=== PATIENT | female | born 1990 | race Asian ===

== ENCOUNTER 2020-04-30 15:29 | Inpatient (IN) | payer BC ==
[2020-04-30] MEDS ORDERED: Ondansetron 4 MG/2 ML SDV IVPUSH PRN (15:33)
[2020-04-30] MEDS ORDERED: Lidocaine 1% 50 ML MDV INJECT PRN (15:33)
[2020-04-30] MEDS ORDERED: Misoprostol 200 MCG Tab PO PRN (15:33)
[2020-04-30] MEDS ORDERED: Water For Irrigation,Sterile 1,000 ML Container IRR PRN (15:33)
[2020-04-30] MEDS ORDERED: Sodium Chloride 0.9% 2.5 ML Syringe FLUSH PRN (15:33)
[2020-04-30] MEDS ORDERED: Methylergonovine 0.2 MG/1 ML Amp IM PRN (15:33)
[2020-04-30] MEDS ORDERED: Nalbuphine 10 MG/1 ML Vial IVPUSH PRN (15:33)
[2020-04-30] MEDS ORDERED: Carboprost Tromethamine 250 MCG/1 ML Amp IM PRN (15:33)
[2020-04-30] MEDS ORDERED: Butorphanol 1 MG/ML SDV IVPUSH PRN (15:33)
[2020-04-30] MEDS ORDERED: Sodium Chloride 0.9% 10 ML Syringe FLUSH PRN (15:33)
[2020-04-30] MEDS ORDERED: Tranexamic Acid 1,000 MG in Sodium Chloride 0.9% 100 ML IV PRN (15:33)
[2020-04-30] MEDS ORDERED: Sodium Chloride 0.9% 10 ML SDV IV PRN (15:33)
[2020-04-30] MEDS: Lactated Ringers 1,000 ML IV SCH ×2 (15:35→18:12)
[2020-04-30] MEDS ORDERED: Terbutaline 1 MG/ML SDV SUBCUT PRN (15:38)
[2020-04-30] MEDS ORDERED: Oxytocin/0.9 % Sodium Chloride 30 UNIT/500 ML BAG IV SCH ×2 (15:45)
[2020-04-30] MEDS ORDERED: fentaNYL 100 MCG/2 ML SDV ONE (20:02)
[2020-04-30] MEDS ORDERED: Ropivacaine HCl/PF 100 ML ONE (20:02)
--- NOTE | 2020-04-30 20:29 | PCM.PREANE ---
Preanesthetic Assessment - Anesthesia/Transfusion/Family Hx Anesthesia History: Prior Anesthesia Without Reaction Family History of Anesthesia Reaction: No Transfusion History: No Prior Transfusion(s) - Physical Assessment NPO Status Date: 04/30/20 NPO Status Time: 14:00 ASA Class: 2 - Lab Values: Laboratory Last Values WBC 10.55 K/uL (4.0-11.0) 04/30/20 15:34 RBC 4.40 M/uL (4.30-5.90) 04/30/20 15:34 Hgb 12.1 g/dL (12.0-16.0) 04/30/20 15:34 Hct 36.2 % (36.0-46.0) 04/30/20 15:34 MCV 82.3 fL (80.0-98.0) 04/30/20 15:34 MCH 27.5 pg (27.0-32.0) 04/30/20 15:34 MCHC 33.4 g/dL (31.0-37.0) 04/30/20 15:34 RDW Std Deviation 44.3 fl (28.0-62.0) 04/30/20 15:34 RDW Coeff of Alexys 15 % (11.0-15.0) 04/30/20 15:34 Plt Count 442 K/uL (150-400) H 04/30/20 15:34 MPV 9.70 fL (7.40-12.00) 04/30/20 15:34 Nucleated RBC % 0.0 /100WBC 04/30/20 15:34 Nucleated RBCs # 0 K/uL 04/30/20 15:34 SARS-CoV-2 RNA (HARRIS) NEGATIVE (NEGATIVE) 04/30/20 15:46 Blood Type AB POSITIVE 04/30/20 15:34 Antibody Screen NEGATIVE 04/30/20 15:34 - Allergies Allergies/Adverse Reactions: Allergies Allergy/AdvReac Type Severity Reaction Status Date / Time No Known Allergies Allergy Verified 04/09/16 21:28 - Acknowledgements Anesthesia Type Planned: Epidural Pt an Appropriate Candidate for the Planned Anesthesia: Yes Alternatives and Risks of Anesthesia Discussed w Pt/Guardian: Yes Pt/Guardian Understands and Agrees with Anesthesia Plan: Yes PreAnesthesia Questionnaire - Past Health History Medical/Surgical History: Denies Medical/Surgical History Cardiovascular History: Reports: None Respiratory History: Reports: None Gastrointestinal History: Reports: None Genitourinary History: Reports: None [employer] History: Reports: 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 History: Reports: None Neurological History: Reports: None Psychiatric History: Reports: None Endocrine/Metabolic History: Reports: None Hematologic History: Reports: None Immunologic History: Reports: None Oncologic (Cancer) History: Reports: None Dermatologic History: Reports: None - Infectious Disease History Infectious Disease History: Reports: None - Past Surgical History Head Surgeries/Procedures: Reports: None - SUBSTANCE USE Tobacco Use Status *Q: Never Tobacco User Second Hand Smoke Exposure: No - HOME MEDS Home Medications: Home Meds . [No Known Home Meds] 04/09/16 [History] - CURRENT (IN HOUSE) MEDS Current Meds: Current Medications Butorphanol Tartrate (Stadol) 1 mg IVPUSH Q1H PRN PRN Reason: Pain Carboprost Tromethamine (Hemabate Ds) 250 mcg IM ASDIRECTED PRN PRN Reason: Post Hemorrhage Oxytocin/Sodium Chloride (Oxytocin 30 Unit/500 Ml-Ns) 30 unit in 500 mls @ 500 mls/hr IV TITRATE JAIR Tranexamic Acid 1,000 mg/ (Sodium Chloride) 110 mls @ 660 mls/hr IV ONETIME PRN PRN Reason: Bleeding Lactated Ringer's (Ringers, Lactated) 1,000 mls @ 150 mls/hr IV ASDIRECTED JAIR Last Admin: 04/30/20 18:12 Dose: 500 mls/hr Documented by: Oxytocin/Sodium Chloride (Oxytocin 30 Unit/500 Ml-Ns) 30 unit in 500 mls @ 2 mls/hr IV TITRATE JAIR; Protocol Last Titration: 04/30/20 19:49 Dose: 8 munits/min, 8 mls/hr Documented by: Lidocaine HCl (Xylocaine 1%) 50 ml INJECT ONETIME PRN PRN Reason: Laceration repair Methylergonovine Maleate (Methergine) 0.2 mg IM ASDIRECTED PRN PRN Reason: Post Hemorrhage Misoprostol (Cytotec) 200 mcg PO ONETIME PRN PRN Reason: Post Hemorrhage Nalbuphine HCl (Nubain) 10 mg IVPUSH Q1H PRN PRN Reason: Pain (severe 7-10) Ondansetron HCl (Zofran) 4 mg IVPUSH Q4H PRN PRN Reason: Nausea/Vomiting Sodium Chloride (Saline Flush) 10 ml FLUSH ASDIRECTED PRN PRN Reason: Keep Vein Open Sodium Chloride (Saline Flush) 2.5 ml FLUSH ASDIRECTED PRN PRN Reason: Keep Vein Open Sodium Chloride (Normal Saline) 10 ml IV ASDIRECTED PRN PRN Reason: IV Use Sterile Water (Sterile Water For Irrigation) 1,000 ml IRR ASDIRECTED PRN PRN Reason: delivery Terbutaline Sulfate (Brethine) 0.25 mg SUBCUT ASDIRECTED PRN PRN Reason: Tacysystole Discontinued Medications Fentanyl (Sublimaze) Confirm Administered Dose 100 mcg .ROUTE .STK-MED ONE Stop: 04/30/20 20:03 Ropivacaine (Naropin 0.2%) Confirm Administered Dose 100 mls @ as directed .ROUTE .STK-MED ONE Stop: 04/30/20 20:03
--- NOTE | 2020-04-30 20:32 | PCM.PRNOTE ---
- Free Text/Narrative Note: Anesthesia Note Patient requests epidural for L&D. Sitting position. Level L3-L4 midline approach. Sterile technique. Chloraprep scrub to lumbar area. Epidural space easily achieved single attempt using CHRISTOPH technique. CHRISTOPH at 4 cm. Cath threaded 5 cm with ease. Cath secured using sterile clear adhesive dressing. Test 2022 3 cc 1.5% lido with epi negative. 2025 Load 10 cc 0.2% ropiviciane with 1 mcg cc fentanyl in slow divided doses. 2300 Pump started wtih 90 cc same solution. Rate is 8 cc hr with 6 cc q 20 min prn bolus. Eddie well. Time with patient Haresh Joiner CRNA
[2020-04-30] MEDS ORDERED: Ibuprofen 800 MG Tab PO PRN (23:21)
[2020-04-30] MEDS ORDERED: Benzocaine/Menthol 20%-0.5% Spray 78 GM Cannister TOP PRN (23:21)
[2020-04-30] MEDS ORDERED: Bisacodyl 10 MG Supp RECTAL PRN (23:21)
[2020-04-30] MEDS ORDERED: oxyCODONE 5 MG Tab PO PRN (23:21)
[2020-04-30] MEDS ORDERED: Acetaminophen 500 MG Tab PO PRN (23:21)
[2020-04-30] MEDS ORDERED: Witch Hazel Medicated Pads 40/Jar TOP PRN (23:21)
[2020-04-30] MEDS ORDERED: Docusate Sodium 100 MG Cap PO PRN (23:21)
[2020-04-30] MEDS ORDERED: Lanolin 100% Cream 7 GM Tube TOP PRN (23:21)
--- NOTE | 2020-04-30 23:25 | PCM.DEL ---
L & D Note - General Info Date of Service: 04/30/20 Mother's Due Date: 05/07/20 - Delivery Note Labor: Induced by Oxytocin Cervical Ripening Method: Oxytocin Delivery Outcome: Livebirth Infant Delivery Method: Spontaneous Vaginal Delivery-Single Presentation: Vertex (direct occiput anterior) Nuchal Cord: None Anesthesia Type: Epidural Amniotic Fluid Description: Clear Episiotomy Type: None Laceration: 2nd Degree Suture type: Vicryl Suture size: 2-0 Placenta: Intact, Spontaneous Cord: 3 Vessels Estimated Blood Loss: 400 : Suctioned, Stimulated, Warmed Score 1 min: 8 Score 5 min: 9 Delivery Comments (Free Text/Narrative):: Shoulder dystocia lasting 45 seconds due to direct occiput anterior position and baby not restituting on own. Shoulders rotated counterclockwise until in CATALINA position, which facilitated delivery of the shoulders and body. Live female infant, weight 3540g. - General Info Date of Service: 04/30/20 - Patient Data Lab Results Last 24 Hours: Laboratory Results - last 24 hr 04/30/20 04/30/20 04/30/20 Range/Units 15:34 15:34 15:46 WBC 10.55 (4.0-11.0) K/uL RBC 4.40 (4.30-5.90) M/uL Hgb 12.1 (12.0-16.0) g/dL Hct 36.2 (36.0-46.0) % MCV 82.3 (80.0-98.0) fL MCH 27.5 (27.0-32.0) pg MCHC 33.4 (31.0-37.0) g/dL RDW Std Deviation 44.3 (28.0-62.0) fl RDW Coeff of Alexys 15 (11.0-15.0) % Plt Count 442 H (150-400) K/uL MPV 9.70 (7.40-12.00) fL Nucleated RBC % 0.0 /100WBC Nucleated RBCs # 0 K/uL SARS-CoV-2 RNA (HARRIS) NEGATIVE (NEGATIVE) Blood Type AB POSITIVE Antibody Screen NEGATIVE Med Orders - Current: Current Medications Acetaminophen (Tylenol Extra Strength) 1,000 mg PO Q6H PRN PRN Reason: Pain Benzocaine/Menthol (Dermoplast Pain Relief 20%-0.5% [place]) 78 gm TOP ASDIRECTED PRN PRN Reason: Perineal Comfort Measure Bisacodyl (Dulcolax) 10 mg RECTAL ONETIME PRN PRN Reason: Constipation Butorphanol Tartrate (Stadol) 1 mg IVPUSH Q1H PRN PRN Reason: Pain Carboprost Tromethamine (Hemabate Ds) 250 mcg IM ASDIRECTED PRN PRN Reason: Post Hemorrhage Docusate Sodium (Colace) 100 mg PO BID PRN PRN Reason: Constipation Emollient Ointment (Lansinoh Hpa) 0 gm TOP ASDIRECTED PRN PRN Reason: Sore Nipples Oxytocin/Sodium Chloride (Oxytocin 30 Unit/500 Ml-Ns) 30 unit in 500 mls @ 500 mls/hr IV TITRATE JAIR Tranexamic Acid 1,000 mg/ (Sodium Chloride) 110 mls @ 660 mls/hr IV ONETIME PRN PRN Reason: Bleeding Lactated Ringer's (Ringers, Lactated) 1,000 mls @ 150 mls/hr IV ASDIRECTED JAIR Last Admin: 04/30/20 18:12 Dose: 500 mls/hr Documented by: Oxytocin/Sodium Chloride (Oxytocin 30 Unit/500 Ml-Ns) 30 unit in 500 mls @ 2 mls/hr IV TITRATE JAIR; Protocol Last Titration: 04/30/20 19:49 Dose: 8 munits/min, 8 mls/hr Documented by: Ibuprofen (Motrin) 800 mg PO Q8H PRN PRN Reason: Pain Lidocaine HCl (Xylocaine 1%) 50 ml INJECT ONETIME PRN PRN Reason: Laceration repair Methylergonovine Maleate (Methergine) 0.2 mg IM ASDIRECTED PRN PRN Reason: Post Hemorrhage Misoprostol (Cytotec) 200 mcg PO ONETIME PRN PRN Reason: Post Hemorrhage Nalbuphine HCl (Nubain) 10 mg IVPUSH Q1H PRN PRN Reason: Pain (severe 7-10) Ondansetron HCl (Zofran) 4 mg IVPUSH Q4H PRN PRN Reason: Nausea/Vomiting Oxycodone HCl (Oxycodone) 5 mg PO Q2H PRN PRN Reason: Pain Sodium Chloride (Saline Flush) 10 ml FLUSH ASDIRECTED PRN PRN Reason: Keep Vein Open Sodium Chloride (Saline Flush) 2.5 ml FLUSH ASDIRECTED PRN PRN Reason: Keep Vein Open Sodium Chloride (Normal Saline) 10 ml IV ASDIRECTED PRN PRN Reason: IV Use Sterile Water (Sterile Water For Irrigation) 1,000 ml IRR ASDIRECTED PRN PRN Reason: delivery Terbutaline Sulfate (Brethine) 0.25 mg SUBCUT ASDIRECTED PRN PRN Reason: Tacysystole Witch Silvia (Tucks) 1 pad TOP ASDIRECTED PRN PRN Reason: comfort care Discontinued Medications Fentanyl (Sublimaze) Confirm Administered Dose 100 mcg .ROUTE .STK-MED ONE Stop: 04/30/20 20:03 Ropivacaine (Naropin 0.2%) Confirm Administered Dose 100 mls @ as directed .ROUTE .STK-MED ONE Stop: 04/30/20 20:03 - Problem List & Annotations (1) Vaginal delivery SNOMED Code(s): 978896118 Code(s): O80 - ENCOUNTER FOR FULL-TERM UNCOMPLICATED DELIVERY Status: Acute Current Visit: No - Problem List Review Problem List Initiated/Reviewed/Updated: Yes - My Orders Last 24 Hours: My Active Orders 04/30/20 Breakfast Regular Diet [DIET] 04/30/20 15:15 Patient Status [ADT] Routine 04/30/20 15:33 Heart Tones [RC] CONTINUOUS Non Stress Test [RC] PER UNIT ROUTINE May Shower [RC] ASDIRECTED Notify Provider [RC] PRN Up ad Sarah [RC] ASDIRECTED Vaginal Exam [RC] PRN Vital Signs [RC] PER UNIT ROUTINE Butorphanol [Stadol] 1 mg IVPUSH Q1H PRN Carboprost Tromethamine [Hemabate DS] 250 mcg IM ASDIRECTED PRN Lidocaine 1% [Xylocaine 1%] 50 ml INJECT ONETIME PRN Methylergonovine [Methergine] 0.2 mg IM ASDIRECTED PRN Nalbuphine [Nubain] 10 mg IVPUSH Q1H PRN Ondansetron [Zofran] 4 mg IVPUSH Q4H PRN Sodium Chloride 0.9% [Normal Saline] 10 ml IV ASDIRECTED PRN Sodium Chloride 0.9% [Saline Flush] 10 ml FLUSH ASDIRECTED PRN Sodium Chloride 0.9% [Saline Flush] 2.5 ml FLUSH ASDIRECTED PRN Tranexamic Acid [Cyklokapron] 1,000 mg Sodium Chloride 0.9% [Normal Saline] 100 ml IV ONETIME Water For Irrigation,Sterile [Sterile Water for Irrigation] 1,000 ml IRR ASDIRECTED PRN miSOPROStoL [Cytotec] 200 mcg PO ONETIME PRN Scalp Electrode [WOMSER] Per Unit Routine Peripheral IV Insertion Adult [OM.PC] Routine Resuscitation Status Routine 04/30/20 15:34 RPR (SYPHILIS SERO) W/ RFLX [REF] Routine 04/30/20 15:38 Terbutaline [Brethine] 0.25 mg SUBCUT ASDIRECTED PRN 04/30/20 15:40 Bedrest Bathroom Privileges [RC] ASDIRECTED Communication Order [RC] ASDIRECTED Communication Order [RC] ASDIRECTED Communication Order [RC] ASDIRECTED Notify Provider [RC] PRN Notify Provider [RC] PRN Notify Provider [RC] STAT Oxygen Therapy [RC] ASDIRECTED Vaginal Exam [RC] PRN 04/30/20 15:45 Lactated Ringers [Ringers, Lactated] 1,000 ml IV ASDIRECTED Oxytocin/0.9 % Sodium Chloride [Oxytocin 30 Unit/500 ML-NS] 30 unit in 500 ml IV TITRATE Oxytocin/0.9 % Sodium Chloride [Oxytocin 30 Unit/500 ML-NS] 30 unit in 500 ml IV TITRATE Medication Administration Instruction [OM.PC] Q3H 04/30/20 23:21 Patient Status [ADT] Routine Cooling Warming Measures [RC] ASDIRECTED May Shower [RC] ASDIRECTED Notify Provider Vital Signs [RC] ASDIRECTED Up ad Sarah [RC] ASDIRECTED Vital Signs [RC] PER UNIT ROUTINE Acetaminophen [Tylenol Extra Strength] 1,000 mg PO Q6H PRN Benzocaine/Menthol [Dermoplast Pain Relief 20%-0.5% [place]] 78 gm TOP ASDIRECTED PRN Docusate Sodium [Colace] 100 mg PO BID PRN Ibuprofen [Motrin] 800 mg PO Q8H PRN Lanolin [Lansinoh HPA] See Dose Instructions TOP ASDIRECTED PRN bisacodyL [Dulcolax] 10 mg RECTAL ONETIME PRN oxyCODONE 5 mg PO Q2H PRN [place] [[place]] 1 pad TOP ASDIRECTED PRN Assess Lochia [WOMSER] Per Unit Routine Assess Uterine Involution [WOMSER] Per Unit Routine Breast Pump [WOMSER] Per Unit Routine Ice Therapy [OM.PC] Per Unit Routine Perineal Care [OM.PC] Per Unit Routine Peripheral IV Discontinue [OM.PC] Routine Sitz Bath [OM.PC] Per Unit Routine 04/30/20 23:22 BLOOD GAS VENOUS UMBILICAL [BG] Routine 05/01/20 05:11 HEMOGLOBIN/HEMATOCRIT,HH [HEME] Timed - Assessment Assessment:: 29yo s/p vaginal delivery at 39w0d - Plan Plan:: Admit to for routine care. Venous cord gas pending.
--- NOTE | 2020-05-01 00:44 | OR ---
SURGEON: Verenice Burks MD DATE OF PROCEDURE: 04/30/2020 PREOPERATIVE DIAGNOSES: 1. A 29-year-old 2, para 1-0-0-1 at 39 weeks and 0 days' gestation. 2. Elective induction of labor. 3. Group B streptococcus negative. POSTOPERATIVE DIAGNOSES: 1. A 29-year-old 2, para 2-0-0-2 at 39 weeks and 0 days' gestation. 2. Elective induction of labor. 3. Group B streptococcus negative. 4. 45-second shoulder dystocia. PROCEDURE: Spontaneous vaginal delivery and repair of second-degree perineal laceration. PRIMARY SURGEON: Verenice Burks MD. ANESTHESIA: Epidural. ESTIMATED BLOOD LOSS: 400 mL. FINDINGS: Live female infant in direct occiput anterior position, which did not restitute with subsequent rotation of the shoulders. score of 8 and 9 at one and five minutes respectively. Weight 3540 g. Second-degree perineal laceration. Placenta intact with 3-vessel cord. INDICATIONS: This is a 29-year-old G2, P 1-0-0-1, who presented at 39 weeks and one days gestation for elective induction of labor per the patient's choice. Upon presentation, her cervix was found to be 4 cm dilated. She was started on Pitocin for induction of labor. She received an epidural for pain control. At approximately 5 cm dilated, she underwent artificial rupture of membranes with clear fluid noted. She progressed to complete cervical dilation and I was called to the room. DESCRIPTION OF PROCEDURE: Over the next several contractions, the patient pushed and delivered a live female . The head delivered in the direct occiput anterior position. However, the shoulders did not easily follow. An exam was performed and the shoulders were in transverse position. The infant's shoulders were rotated counter clockwise, which resulted in restitution to the right occiput anterior and subsequent delivery of the shoulders with maternal pushing efforts. The remainder of body followed. The was placed on the maternal abdomen. After approximately 60 seconds, the cord was clamped and cut. Venous cord gas and cord blood were obtained. The placenta then delivered intact with 3-vessel cord via the Kaur-Murdock maneuver. The perineum was inspected and a second- degree perineal laceration was noted. This was repaired to anatomy and hemostasis with 2-0 Vicryl suture. The fundus was firm with minimal bleeding. The patient and infant tolerated the delivery well. [id number] / MODL /[id number]
--- NOTE | 2020-05-01 09:02 | PCM48HPAN ---
Post Anesthesia Note - EVALUATION WITHIN 48HRS OF ANESTHETIC Vital Signs in Normal Range: Yes Patient Participated in Evaluation: Yes Respiratory Function Stable: Yes Airway Patent: Yes Cardiovascular Function Stable: Yes Hydration Status Stable: Yes Pain Control Satisfactory: Yes Nausea and Vomiting Control Satisfactory: Yes Mental Status Recovered: Yes Vital Signs: Last Vital Signs Temp 36.9 C 05/01/20 07:00 Pulse 76 05/01/20 07:00 Resp 16 05/01/20 07:00 BP 102/63 05/01/20 07:00 Pulse Ox 97 05/01/20 07:00 - COMMENTS/OBSERVATIONS Free Text/Narrative:: Patient states that she has a history of chronic back pain, and states that her pain is related to that. Physical examination of her spine is unremarkable, and there were no apparent neurodeficits. Discharge per primary service.
--- NOTE | 2020-05-01 09:49 | PCM.PNPP ---
- General Info Date of Service: 05/01/20 Subjective Update: Patient doing well. Minimal lochia and cramping. going well thus far. Mild back pain, tolerable. Functional Status: Reports: Pain Controlled, Tolerating Diet, Ambulating, Urinating - Review of Systems General: Reports: No Symptoms HEENT: Reports: No Symptoms Pulmonary: Reports: No Symptoms Cardiovascular: Reports: No Symptoms Gastrointestinal: Reports: No Symptoms Genitourinary: Reports: No Symptoms 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: Reports: No Symptoms Skin: Reports: No Symptoms Neurological: Reports: No Symptoms Psychiatric: Reports: No Symptoms - Patient Data Vital Signs - Most Recent: Last Vital Signs Temp 36.9 C 05/01/20 07:00 Pulse 76 05/01/20 07:00 Resp 16 05/01/20 07:00 BP 102/63 05/01/20 07:00 Pulse Ox 97 05/01/20 07:00 Lab Results - Last 24 Hours: Laboratory Results - last 24 hr 04/30/20 04/30/20 04/30/20 Range/Units 15:34 15:34 15:46 WBC 10.55 (4.0-11.0) K/uL RBC 4.40 (4.30-5.90) M/uL Hgb 12.1 (12.0-16.0) g/dL Hct 36.2 (36.0-46.0) % MCV 82.3 (80.0-98.0) fL MCH 27.5 (27.0-32.0) pg MCHC 33.4 (31.0-37.0) g/dL RDW Std Deviation 44.3 (28.0-62.0) fl RDW Coeff of Alexys 15 (11.0-15.0) % Plt Count 442 H (150-400) K/uL MPV 9.70 (7.40-12.00) fL Nucleated RBC % 0.0 /100WBC Nucleated RBCs # 0 K/uL Cord VBG pH (7.25-7.45) Cord VBG Base Excess (-10--2) SARS-CoV-2 RNA (HARRIS) NEGATIVE (NEGATIVE) Blood Type AB POSITIVE Antibody Screen NEGATIVE 04/30/20 05/01/20 Range/Units 22:56 05:55 WBC (4.0-11.0) K/uL RBC (4.30-5.90) M/uL Hgb 11.0 L (12.0-16.0) g/dL Hct 33.7 L (36.0-46.0) % MCV (80.0-98.0) fL MCH (27.0-32.0) pg MCHC (31.0-37.0) g/dL RDW Std Deviation (28.0-62.0) fl RDW Coeff of Alexys (11.0-15.0) % Plt Count (150-400) K/uL MPV (7.40-12.00) fL Nucleated RBC % /100WBC Nucleated RBCs # K/uL Cord VBG pH 7.305 (7.25-7.45) Cord VBG Base Excess -6 (-10--2) SARS-CoV-2 RNA (HARRIS) (NEGATIVE) Blood Type Antibody Screen Med Orders - Current: Current Medications Acetaminophen (Tylenol Extra Strength) 1,000 mg PO Q6H PRN PRN Reason: Pain Benzocaine/Menthol (Dermoplast Pain Relief 20%-0.5% [place]) 78 gm TOP ASDIRECTED PRN PRN Reason: Perineal Comfort Measure Last Admin: 05/01/20 01:05 Dose: 1 spray Documented by: Bisacodyl (Dulcolax) 10 mg RECTAL ONETIME PRN PRN Reason: Constipation Butorphanol Tartrate (Stadol) 1 mg IVPUSH Q1H PRN PRN Reason: Pain Carboprost Tromethamine (Hemabate Ds) 250 mcg IM ASDIRECTED PRN PRN Reason: Post Hemorrhage Docusate Sodium (Colace) 100 mg PO BID PRN PRN Reason: Constipation Emollient Ointment (Lansinoh Hpa) 0 gm TOP ASDIRECTED PRN PRN Reason: Sore Nipples Last Admin: 05/01/20 01:06 Dose: 1 gm Documented by: Oxytocin/Sodium Chloride (Oxytocin 30 Unit/500 Ml-Ns) 30 unit in 500 mls @ 500 mls/hr IV TITRATE JAIR Tranexamic Acid 1,000 mg/ (Sodium Chloride) 110 mls @ 660 mls/hr IV ONETIME PRN PRN Reason: Bleeding Lactated Ringer's (Ringers, Lactated) 1,000 mls @ 150 mls/hr IV ASDIRECTED JAIR Last Admin: 04/30/20 18:12 Dose: 500 mls/hr Documented by: Oxytocin/Sodium Chloride (Oxytocin 30 Unit/500 Ml-Ns) 30 unit in 500 mls @ 2 mls/hr IV TITRATE JAIR; Protocol Last Titration: 04/30/20 22:56 Dose: 999 munits/min, 999 mls/hr Documented by: Ibuprofen (Motrin) 800 mg PO Q8H PRN PRN Reason: Pain Lidocaine HCl (Xylocaine 1%) 50 ml INJECT ONETIME PRN PRN Reason: Laceration repair Methylergonovine Maleate (Methergine) 0.2 mg IM ASDIRECTED PRN PRN Reason: Post Hemorrhage Misoprostol (Cytotec) 200 mcg PO ONETIME PRN PRN Reason: Post Hemorrhage Nalbuphine HCl (Nubain) 10 mg IVPUSH Q1H PRN PRN Reason: Pain (severe 7-10) Ondansetron HCl (Zofran) 4 mg IVPUSH Q4H PRN PRN Reason: Nausea/Vomiting Oxycodone HCl (Oxycodone) 5 mg PO Q2H PRN PRN Reason: Pain Sodium Chloride (Saline Flush) 10 ml FLUSH ASDIRECTED PRN PRN Reason: Keep Vein Open Sodium Chloride (Saline Flush) 2.5 ml FLUSH ASDIRECTED PRN PRN Reason: Keep Vein Open Sodium Chloride (Normal Saline) 10 ml IV ASDIRECTED PRN PRN Reason: IV Use Sterile Water (Sterile Water For Irrigation) 1,000 ml IRR ASDIRECTED PRN PRN Reason: delivery Terbutaline Sulfate (Brethine) 0.25 mg SUBCUT ASDIRECTED PRN PRN Reason: Tacysystole Witch Silvia (Tucks) 1 pad TOP ASDIRECTED PRN PRN Reason: comfort care Last Admin: 05/01/20 01:05 Dose: 1 pad Documented by: Discontinued Medications Fentanyl (Sublimaze) Confirm Administered Dose 100 mcg .ROUTE .STK-MED ONE Stop: 04/30/20 20:03 Ropivacaine (Naropin 0.2%) Confirm Administered Dose 100 mls @ as directed .ROUTE .STK-MED ONE Stop: 04/30/20 20:03 - Interaction Disposition, : in Room with Family Infant Interaction: Holding Infant Feeding: Breastfed ; Nursed Well Support Person: - Recovery Exam Fundal Level: 2 Fingerbreadths Below Umbilicus Fundal Placement: Midline Lochia Amount: Small Lochia Color: Rubra/Red Perineum Description: Intact, Minimal Bruising/Swelling Bladder Status: Voiding Urinary Elimination: Voided - Exam General: Alert, Oriented Neck: Supple Lungs: Normal Respiratory Effort GI/Abdominal Exam: Soft, Non-Tender Extremities: Non-Tender, Pedal Edema (1+) Skin: Warm, Dry, Intact Neurological: No New Focal Deficit Psy/Mental Status: Alert, Normal Affect, Normal Mood - Problem List & Annotations (1) Vaginal delivery SNOMED Code(s): 975653175 Code(s): O80 - ENCOUNTER FOR FULL-TERM UNCOMPLICATED DELIVERY Status: Acute Current Visit: No - Problem List Review Problem List Initiated/Reviewed/Updated: Yes - My Orders Last 24 Hours: My Active Orders 04/30/20 15:15 Patient Status [ADT] Routine 04/30/20 15:33 May Shower [RC] ASDIRECTED Up ad Sarah [RC] ASDIRECTED Vital Signs [RC] PER UNIT ROUTINE Butorphanol [Stadol] 1 mg IVPUSH Q1H PRN Carboprost Tromethamine [Hemabate DS] 250 mcg IM ASDIRECTED PRN Lidocaine 1% [Xylocaine 1%] 50 ml INJECT ONETIME PRN Methylergonovine [Methergine] 0.2 mg IM ASDIRECTED PRN Nalbuphine [Nubain] 10 mg IVPUSH Q1H PRN Ondansetron [Zofran] 4 mg IVPUSH Q4H PRN Sodium Chloride 0.9% [Normal Saline] 10 ml IV ASDIRECTED PRN Sodium Chloride 0.9% [Saline Flush] 10 ml FLUSH ASDIRECTED PRN Sodium Chloride 0.9% [Saline Flush] 2.5 ml FLUSH ASDIRECTED PRN Tranexamic Acid [Cyklokapron] 1,000 mg Sodium Chloride 0.9% [Normal Saline] 100 ml IV ONETIME Water For Irrigation,Sterile [Sterile Water for Irrigation] 1,000 ml IRR ASDIRECTED PRN miSOPROStoL [Cytotec] 200 mcg PO ONETIME PRN Scalp Electrode [WOMSER] Per Unit Routine Peripheral IV Insertion Adult [OM.PC] Routine Resuscitation Status Routine 04/30/20 15:34 RPR (SYPHILIS SERO) W/ RFLX [REF] Routine 04/30/20 15:38 Terbutaline [Brethine] 0.25 mg SUBCUT ASDIRECTED PRN 04/30/20 15:40 Bedrest Bathroom Privileges [RC] ASDIRECTED Communication Order [RC] ASDIRECTED Communication Order [RC] ASDIRECTED Communication Order [RC] ASDIRECTED Oxygen Therapy [RC] ASDIRECTED 04/30/20 15:45 Lactated Ringers [Ringers, Lactated] 1,000 ml IV ASDIRECTED Oxytocin/0.9 % Sodium Chloride [Oxytocin 30 Unit/500 ML-NS] 30 unit in 500 ml IV TITRATE Oxytocin/0.9 % Sodium Chloride [Oxytocin 30 Unit/500 ML-NS] 30 unit in 500 ml IV TITRATE Medication Administration Instruction [OM.PC] Q3H 04/30/20 23:21 Patient Status [ADT] Routine May Shower [RC] ASDIRECTED Notify Provider Vital Signs [RC] ASDIRECTED Up ad Sarah [RC] ASDIRECTED Vital Signs [RC] PER UNIT ROUTINE Acetaminophen [Tylenol Extra Strength] 1,000 mg PO Q6H PRN Benzocaine/Menthol [Dermoplast Pain Relief 20%-0.5% [place]] 78 gm TOP ASDIRECTED PRN Docusate Sodium [Colace] 100 mg PO BID PRN Ibuprofen [Motrin] 800 mg PO Q8H PRN Lanolin [Lansinoh HPA] See Dose Instructions TOP ASDIRECTED PRN bisacodyL [Dulcolax] 10 mg RECTAL ONETIME PRN oxyCODONE 5 mg PO Q2H PRN witch Silvia [Tucks] 1 pad TOP ASDIRECTED PRN Assess Lochia [WOMSER] Per Unit Routine Assess Uterine Involution [WOMSER] Per Unit Routine Breast Pump [WOMSER] Per Unit Routine Ice Therapy [OM.PC] Per Unit Routine Perineal Care [OM.PC] Per Unit Routine Peripheral IV Discontinue [OM.PC] Routine Sitz Bath [OM.PC] Per Unit Routine - Assessment Assessment:: 29yo s/p vaginal delivery at 39w0d, PPD#1 - Plan Plan:: Normal venous cord gas. Continue routine care. Plan for discharge home tomorrow.
--- NOTE | 2020-05-02 08:16 | PCM.PNPP ---
- General Info Date of Service: 05/02/20 Subjective Update: Patient without complaints this morning. going well. Baby has vomited after receiving formula, had fluid suctioned from stomach yesterday. Functional Status: Reports: Pain Controlled, Tolerating Diet, Ambulating, Urinating - Review of Systems General: Reports: No Symptoms HEENT: Reports: No Symptoms Pulmonary: Reports: No Symptoms Cardiovascular: Reports: No Symptoms Gastrointestinal: Reports: No Symptoms Genitourinary: Reports: No Symptoms 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: Reports: No Symptoms Skin: Reports: No Symptoms Neurological: Reports: No Symptoms Psychiatric: Reports: No Symptoms - Patient Data Vital Signs - Most Recent: Last Vital Signs Temp 36.4 C 05/02/20 04:12 Pulse 64 05/02/20 04:12 Resp 15 05/01/20 16:00 BP 115/58 L 05/02/20 04:12 Pulse Ox 97 05/02/20 04:12 Med Orders - Current: Current Medications Acetaminophen (Tylenol Extra Strength) 1,000 mg PO Q6H PRN PRN Reason: Pain Benzocaine/Menthol (Dermoplast Pain Relief 20%-0.5% [place]) 78 gm TOP ASDIRECTED PRN PRN Reason: Perineal Comfort Measure Last Admin: 05/01/20 01:05 Dose: 1 spray Documented by: Bisacodyl (Dulcolax) 10 mg RECTAL ONETIME PRN PRN Reason: Constipation Butorphanol Tartrate (Stadol) 1 mg IVPUSH Q1H PRN PRN Reason: Pain Carboprost Tromethamine (Hemabate Ds) 250 mcg IM ASDIRECTED PRN PRN Reason: Post Hemorrhage Docusate Sodium (Colace) 100 mg PO BID PRN PRN Reason: Constipation Emollient Ointment (Lansinoh Hpa) 0 gm TOP ASDIRECTED PRN PRN Reason: Sore Nipples Last Admin: 05/01/20 01:06 Dose: 1 gm Documented by: Oxytocin/Sodium Chloride (Oxytocin 30 Unit/500 Ml-Ns) 30 unit in 500 mls @ 500 mls/hr IV TITRATE JAIR Tranexamic Acid 1,000 mg/ (Sodium Chloride) 110 mls @ 660 mls/hr IV ONETIME PRN PRN Reason: Bleeding Lactated Ringer's (Ringers, Lactated) 1,000 mls @ 150 mls/hr IV ASDIRECTED JAIR Last Admin: 04/30/20 18:12 Dose: 500 mls/hr Documented by: Oxytocin/Sodium Chloride (Oxytocin 30 Unit/500 Ml-Ns) 30 unit in 500 mls @ 2 mls/hr IV TITRATE JAIR; Protocol Last Titration: 04/30/20 22:56 Dose: 999 munits/min, 999 mls/hr Documented by: Ibuprofen (Motrin) 800 mg PO Q8H PRN PRN Reason: Pain Lidocaine HCl (Xylocaine 1%) 50 ml INJECT ONETIME PRN PRN Reason: Laceration repair Methylergonovine Maleate (Methergine) 0.2 mg IM ASDIRECTED PRN PRN Reason: Post Hemorrhage Misoprostol (Cytotec) 200 mcg PO ONETIME PRN PRN Reason: Post Hemorrhage Nalbuphine HCl (Nubain) 10 mg IVPUSH Q1H PRN PRN Reason: Pain (severe 7-10) Ondansetron HCl (Zofran) 4 mg IVPUSH Q4H PRN PRN Reason: Nausea/Vomiting Oxycodone HCl (Oxycodone) 5 mg PO Q2H PRN PRN Reason: Pain Sodium Chloride (Saline Flush) 10 ml FLUSH ASDIRECTED PRN PRN Reason: Keep Vein Open Sodium Chloride (Saline Flush) 2.5 ml FLUSH ASDIRECTED PRN PRN Reason: Keep Vein Open Sodium Chloride (Normal Saline) 10 ml IV ASDIRECTED PRN PRN Reason: IV Use Sterile Water (Sterile Water For Irrigation) 1,000 ml IRR ASDIRECTED PRN PRN Reason: delivery Terbutaline Sulfate (Brethine) 0.25 mg SUBCUT ASDIRECTED PRN PRN Reason: Tacysystole Witch Silvia (Tucks) 1 pad TOP ASDIRECTED PRN PRN Reason: comfort care Last Admin: 05/01/20 01:05 Dose: 1 pad Documented by: Discontinued Medications Fentanyl (Sublimaze) Confirm Administered Dose 100 mcg .ROUTE .STK-MED ONE Stop: 04/30/20 20:03 Ropivacaine (Naropin 0.2%) Confirm Administered Dose 100 mls @ as directed .ROUTE .STK-MED ONE Stop: 04/30/20 20:03 - Interaction Disposition, : [place] in Room with Family Infant Interaction: Holding Infant Feeding: Bottle Fed , Breastfed ; Nursed Well Support Person: - Recovery Exam Fundal Tone: Firm Fundal Level: At Umbilicus Fundal Placement: Midline Lochia Amount: Scant Lochia Color: Rubra/Red Other Perinuem Description: 2nd degree lac repaired Bladder Status: Voiding Urinary Elimination: Voided - Exam General: Alert, Oriented Neck: Supple Lungs: Normal Respiratory Effort GI/Abdominal Exam: Soft, Non-Tender Extremities: Non-Tender Skin: Warm, Dry, Intact Neurological: No New Focal Deficit Psy/Mental Status: Alert, Normal Affect, Normal Mood - Problem List & Annotations (1) Vaginal delivery SNOMED Code(s): 661567173 Code(s): O80 - ENCOUNTER FOR FULL-TERM UNCOMPLICATED DELIVERY Status: Acute Current Visit: No - Problem List Review Problem List Initiated/Reviewed/Updated: Yes - My Orders Last 24 Hours: My Active Orders 05/02/20 08:14 Ready for Discharge [RC] PER UNIT ROUTINE - Assessment Assessment:: 29yo s/p vaginal delivery at 39w0d, PPD#2 - Plan Plan:: Plan for discharge home today. Reviewed discharge instructions/precautions.
[2020-05-02 13:25] VITALS: BP 122/64; PULSE 72
== END 2020-05-02 13:45 | disposition home or self-care (01) | DRG 560 ==
LOC: MW.OB 15:29 → OBSVTOIN 22:56 → MW.OB 22:56
PROVIDERS: ADMIT Obstetrics & Gynecology; ATTEND Obstetrics & Gynecology
PROC: 10E0XZZ Delivery of Products of Conception, External Approach (ICD-10-PCS; principal; 2020-04-30)
PROC: 3E033VJ Introduction of Other Hormone into Peripheral Vein, Percutaneous Approach (ICD-10-PCS; 2020-04-30)
PROC: 0KQM0ZZ Repair Perineum Muscle, Open Approach (ICD-10-PCS; 2020-04-30)
PROC: 10907ZC Drainage of Amniotic Fluid, Therapeutic from Products of Conception, Via Natural or Artificial Opening (ICD-10-PCS; 2020-04-30)
PROC: 3E0R3BZ Introduction of Anesthetic Agent into Spinal Canal, Percutaneous Approach (ICD-10-PCS; 2020-04-30)
PROC: 00HU33Z Insertion of Infusion Device into Spinal Canal, Percutaneous Approach (ICD-10-PCS; 2020-04-30)
DX: O66.0 Obstructed labor due to shoulder dystocia (principal); O70.1 Second degree perineal laceration during delivery; Z37.0 Single live birth; Z3A.39 39 weeks gestation of pregnancy; Z20.828 Contact with and (suspected) exposure to other viral communicable diseases
CPT/HCPCS: 36415; 51702; 59025; 59409; 82803; 85014; 85018; 85027; 86592; 86850; 86900; 86901; A9270-GY; J2590; J7120; U0002

== ENCOUNTER 2020-05-27 12:20 | Emergency (ER) | payer BC ==
--- NOTE | 2020-05-27 12:54 | EDM.PDOC ---
ED HPI GENERAL MEDICAL PROBLEM - General Chief Complaint: Skin Complaint Stated Complaint: MASPIPIS Time Seen by Provider: 05/27/20 12:43 Source of Information: Reports: Patient History Limitations: Reports: No Limitations - History of Present Illness INITIAL COMMENTS - FREE TEXT/NARRATIVE: Patient is a 29-year-old female who is also 1 month . Patient presents today for a redness or mass of her left breast. 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 Patient states she has been to the doctor twice and been placed on 2 separate antibiotics without any resolvent of the mass. She started having some drainage from the mass few days ago. Patient denies any pain to the area or fever chills or nausea or vomiting. Patient still breast-feeding but has been dumping the milk for the past few days because has been more of a clear watery color than white. 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 History: Reports: None Neurological History: Reports: None Psychiatric History: Reports: None Endocrine/Metabolic History: Reports: None Hematologic History: Reports: None Immunologic History: Reports: None Oncologic (Cancer) History: Reports: None Dermatologic History: Reports: None - Infectious Disease History Infectious Disease History: Reports: None, Novel Coronavirus - Past Surgical History Head Surgeries/Procedures: Reports: None HEENT Surgical History: Reports: Other (See Below) Other HEENT Surgeries/Procedures: Wearing eyeglasses Social & Family History - Family History Family Medical History: No Pertinent Family History HEENT: Reports: Cataract Respiratory: Reports: None GI: Reports: None : Reports: None OBGYN: Reports: 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: Reports: None Neurological: Reports: None Psychiatric: Reports: None Endocrine/Metabolic: Reports: None Hematologic: Reports: None Immunologic: Reports: None Dermatologic: Reports: None Oncologic: Reports: None - Tobacco Use Tobacco Use Status *Q: Never Tobacco User - Caffeine Use Caffeine Use: Reports: None - Recreational Drug Use Recreational Drug Use: No ED ROS GENERAL - Review of Systems Review Of Systems: See Below Constitutional: Reports: No Symptoms HEENT: Reports: No Symptoms Respiratory: Reports: No Symptoms Cardiovascular: Reports: No Symptoms Endocrine: Reports: No Symptoms GI/Abdominal: Reports: No Symptoms : Reports: No Symptoms 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: Reports: No Symptoms Skin: Reports: Erythema Neurological: Reports: No Symptoms Psychiatric: Reports: No Symptoms Hematologic/Lymphatic: Reports: No Symptoms Immunologic: Reports: No Symptoms ED EXAM, SKIN/RASH Exam: See Below Exam Limited By: No Limitations General Appearance: Alert, No Apparent Distress Respiratory/Chest: No Respiratory Distress, Lungs Clear Cardiovascular: Regular Rate, Rhythm GI/Abdominal: Normal Bowel Sounds, Soft, Non-Tender Neurological: Alert, Oriented, Normal Cognition, Normal Gait Skin: Erythema, Other (redness and clear drainage from left breast non tender ) Course - Vital Signs Last Recorded V/S: Last Vital Signs Temp 97.3 F 05/27/20 14:17 Pulse 73 05/27/20 15:49 Resp 14 05/27/20 15:49 BP 124/86 05/27/20 15:49 Pulse Ox 98 05/27/20 15:49 - Orders/Labs/Meds Orders: Active Orders 24 hr Category Date Time Status Chest w Cont [CT] Stat Exams 05/27/20 16:16 Taken CULTURE BLOOD [BC] Stat Lab 05/27/20 13:53 Received CULTURE BLOOD [BC] Stat Lab 05/27/20 14:10 Received Blood Culture x2 Reflex Set [OM.PC] Stat Oth 05/27/20 12:50 Ordered Labs: Laboratory Tests 05/27/20 05/27/20 Range/Units 13:53 13:53 WBC 7.99 (4.0-11.0) K/uL RBC 5.50 (4.30-5.90) M/uL Hgb 14.4 (12.0-16.0) g/dL Hct 44.5 (36.0-46.0) % MCV 80.9 (80.0-98.0) fL MCH 26.2 L (27.0-32.0) pg MCHC 32.4 (31.0-37.0) g/dL RDW Std Deviation 41.7 (28.0-62.0) fl RDW Coeff of Alexys 14 (11.0-15.0) % Plt Count 337 (150-400) K/uL MPV 9.60 (7.40-12.00) fL Neut % (Auto) 69.7 (48.0-80.0) % Lymph % (Auto) 23.8 (16.0-40.0) % [place] % (Auto) 6.0 (0.0-15.0) % Eos % (Auto) 0.4 (0.0-7.0) % Baso % (Auto) 0.1 (0.0-1.5) % Neut # (Auto) 5.6 (1.4-5.7) K/uL Lymph # (Auto) 1.9 (0.6-2.4) K/uL [place] # (Auto) 0.5 (0.0-0.8) K/uL Eos # (Auto) 0.0 (0.0-0.7) K/uL Baso # (Auto) 0.0 (0.0-0.1) K/uL Nucleated RBC % 0.0 /100WBC Nucleated RBCs # 0 K/uL Sodium 140 (136-145) mmol/L Potassium 3.9 (3.5-5.1) mmol/L Chloride 104 (98-107) mmol/L Carbon Dioxide 25.9 (21.0-32.0) mmol/L BUN 7 (7.0-18.0) mg/dL Creatinine 0.5 L (0.6-1.0) mg/dL Est Cr Clr Drug Dosing 119.25 mL/min Estimated GFR (MDRD) > 60.0 ml/min Glucose 92 (74-106) mg/dL Calcium 9.2 (8.5-10.1) mg/dL C-Reactive Protein 1.70 H (0.00-0.90) mg/dL - Re-Assessments/Exams Free Text/Narrative Re-Assessment/Exam: 05/27/20 16:20 Patient ultrasound shows a large abscess. We consulted general surgery who came and evaluated the patient in the ER. At the evaluation they recommend getting a CAT scan to see if there is a is a large drainable abscess. 05/27/20 17:[address] complete. Surgery continues to evaluate patient patient can be discharged home and will return tomorrow to have the abscess drained in OR. Patient should continue her antibiotics. Departure - Departure Time of Disposition: 18:05 Disposition: Home, Self-Care 01 Condition: Good Clinical Impression: Breast abscess - Discharge Information *PRESCRIPTION DRUG MONITORING PROGRAM REVIEWED*: Not Applicable *COPY OF PRESCRIPTION DRUG MONITORING REPORT IN PATIENT FLASH: Not Applicable Instructions: and Mastitis Referrals: Verenice Burks MD [Primary Care Provider] - Forms: ED Department Discharge Additional Instructions: The following information is given to patients seen in the emergency department who are being discharged to home. This information is to outline your options for follow-up care. We provide all patients seen in our emergency department with a follow-up referral. The need for follow-up, as well as the timing and circumstances, are variable depending upon the specifics of your emergency department visit. If you don't have a primary care physician on staff, we will provide you with a referral. We always advise you to contact your personal physician following an emergency department visit to inform them of the circumstance of the visit and for follow-up with them and/or the need for any referrals to a consulting specialist. The emergency department will also refer you to a specialist when appropriate. This referral assures that you have the opportunity for follow-up care with a specialist. All of these measure are taken in an effort to provide you with optimal care, which includes your follow-up. Under all circumstances we always encourage you to contact your private physician who remains a resource for coordinating your care. When calling for follow-up care, please make the office aware that this follow-up is from your recent emergency room visit. If for any reason you are refused follow-up, please contact the [facility] Emergency Department at and asked to speak to the emergency department charge nurse. Please follow up with your primary care physician. If you do not have a primary care physician, see below: [facility] [address] [place] [id number] [id number] Please follow-up tomorrow with surgery for drainage of your breast abscess. If you develop any increased pain redness fevers chills please return to the ED immediately Sepsis Event Note (ED) - Evaluation Sepsis Screening Result: No Definite Risk - Focused Exam Vital Signs: Vital Signs Temp Pulse Resp BP Pulse Ox 05/27/20 15:49 73 14 124/86 98 05/27/20 15:19 69 16 126/83 98 05/27/20 14:17 97.3 F 71 14 122/88 97 05/27/20 12:30 96.9 F 76 18 123/94 H 97 - My Orders Last 24 Hours: My Active Orders 05/27/20 12:50 Blood Culture x2 Reflex Set [OM.PC] Stat 05/27/20 13:53 CULTURE BLOOD [BC] Stat 05/27/20 14:10 CULTURE BLOOD [BC] Stat 05/27/20 16:16 Chest w Cont [CT] Stat - Assessment/Plan Last 24 Hours: My Active Orders 05/27/20 12:50 Blood Culture x2 Reflex Set [OM.PC] Stat 05/27/20 13:53 CULTURE BLOOD [BC] Stat 05/27/20 14:10 CULTURE BLOOD [BC] Stat 05/27/20 16:16 Chest w Cont [CT] Stat Plan: Patient is a 29-year-old female who presents today for redness and mass to the left breast. Concern for possible abscess will obtain labs ultrasound and reassess.
[2020-05-27 14:21] LABS: BLOOD UREA NITROGEN,BUN 7 mg/dL (7.0-18.0); CARBON DIOXIDE,CO2 25.9 mmol/L (21.0-32.0); CHLORIDE,CL 104 mmol/L (98-107); GLUCOSE RANDOM 92 mg/dL (74-106); POTASSIUM,K 3.9 mmol/L (3.5-5.1); SODIUM,NA 140 mmol/L (136-145)
--- NOTE | 2020-05-27 15:27 | US ---
Indication: Possible abscess of breast Technique: Left breast ultrasound Comparison: No comparison studies are available. Findings: Static images of the left breast from 8 to 1:00 position. Diffuse heterogeneous breast parenchyma. Ill-defined hypodense areas in the left breast most significant at the 9 o`clock position demonstrates ill-defined complex fluid collections. Overlying skin thickening. Impression: 1. Diffuse edema with ill-defined fluid collections most significant in the left breast 9:00 position. Recommend clinical and imaging follow-up. Dictated by Lauryn Iglesias MD @ May 30 2020 10:38AM Signed by Dr. Lauryn Iglesias @ May 30 2020 10:44AM
[2020-05-27 16:06] VITALS: PULSE 73
[2020-05-27 18:28] VITALS: BP 124/93
--- NOTE | 2020-05-27 18:29 | CT ---
INDICATION: Left breast abscess, COVID positive TECHNIQUE: CT chest was acquired with 75 cc Isovue 370 IV contrast. COMPARISON: Breast ultrasound from earlier today FINDINGS: Left breast: There is subtle areas of rim enhancing hypodensity interdigitating between the normal areas of breast tissue. The largest pocket is in the medial aspect of the breast and measures 1.3 x 4.4 x 1.6 cm, best seen on image 52 series 201. This is located 2.2 cm deep to the skin surface. There is skin thickening of the left breast. Borderline left axillary lymph nodes. Cardiovascular structures: Heart size is normal. Thoracic aorta and main pulmonary artery are normal in caliber. Mediastinum and won: No mass or adenopathy. Lungs: Faint scattered areas of ground-glass opacities in both lungs. Pleura and pericardium: No effusions. Chest wall and axilla: No mass or adenopathy. Upper abdomen: Unremarkable. Bones: No significant findings. IMPRESSION: Left breast abscess as described above. Ground-glass opacities in both lungs concerning for infection, including COVID-19. Findings discussed with Dr. Taylor at 6:25 p.m. on May 27, 2020. Please note that all CT scans at this facility use dose modulation, iterative reconstruction, and/or weight-based dosing when appropriate to reduce radiation dose to as low as reasonably achievable. Dictated by Anahi Ryan MD @ May 27 2020 6:26PM Signed by Dr. Anahi Ryan @ May 27 2020 6:26PM
[2020-05-27] MEDS ORDERED: Iopamidol 755 MG/ML 500 ML Multipack Bottle IVPUSH STA (18:30)
--- NOTE | 2020-05-27 18:30 | PCM.CONS ---
H&P History of Present Illness - General Date of Service: 05/27/20 Source of Information: Patient History Limitations: Reports: No Limitations - History of Present Illness Initial Comments - Free Text/Narative: Patient is a 29 year old female who presents with left breast skin lesion as well as an infection. She is post , but during her developed a small bump on her breast. After she started breast feeding, her breasts became swollen, tender and red. She was seen by her OB last Wednesday who diagnosed her with mastitis and placed her on dicloxacillin. She presented to the ER at an OSH this weekend with worsening pain and swelling. She was given clindamycin. She has been taking both. She developed an open weeping area at the 12 o'clock position on her breast and came to the ER for evaluation. Her tested positive for COVID last week so she went in for testing on Wednesday last week. This was positive. She denies fevers, chills, nausea, vomiting, chest pain, SOB, abdominal pain or changes in bowel habits. left breast Pain Score (Numeric/FACES): 4 - Related Data Allergies/Adverse Reactions: Allergies Allergy/AdvReac Type Severity Reaction Status Date / Time No Known Allergies Allergy Verified 05/27/20 12:34 Home Medications: Home Meds Acetaminophen/oxyCODONE [Percocet 325-5 MG] 1 each PO Q6HR PRN 2 Days #8 tab 05/27/20 [Rx] Clindamycin HCl 300 mg PO Q8H 05/27/20 [History] Dicloxacillin 1 tab PO QID 05/27/20 [History] Past Medical History - Past Health History Medical/Surgical History: Denies Medical/Surgical History Cardiovascular History: Reports: None Respiratory History: Reports: None Gastrointestinal History: Reports: None Genitourinary History: Reports: None 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: 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 History: Reports: None Neurological History: Reports: None Psychiatric History: Reports: None Endocrine/Metabolic History: Reports: None Hematologic History: Reports: None Immunologic History: Reports: None Oncologic (Cancer) History: Reports: None Dermatologic History: Reports: None - Infectious Disease History Infectious Disease History: Reports: None, Novel Coronavirus - Past Surgical History Head Surgeries/Procedures: Reports: None HEENT Surgical History: Reports: Other (See Below) Other HEENT Surgeries/Procedures: Wearing eyeglasses Social & Family History - Family History Family Medical History: No Pertinent Family History HEENT: Reports: Cataract Respiratory: Reports: None GI: Reports: None : Reports: None OBGYN: Reports: 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: Reports: None Neurological: Reports: None Psychiatric: Reports: None Endocrine/Metabolic: Reports: None Hematologic: Reports: None Immunologic: Reports: None Dermatologic: Reports: None Oncologic: Reports: None - Tobacco Use Tobacco Use Status *Q: Never Tobacco User - Caffeine Use Caffeine Use: Reports: None - Recreational Drug Use Recreational Drug Use: No H&P Review of Systems - Review of Systems: Review Of Systems: Comprehensive ROS is negative, except as noted in HPI. General: Reports: No Symptoms HEENT: Reports: No Symptoms Pulmonary: Reports: No Symptoms Cardiovascular: Reports: No Symptoms Gastrointestinal: Reports: No Symptoms Genitourinary: Reports: No Symptoms 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: Reports: No Symptoms Skin: Reports: Other (swelling, drainage, redness warmth above left areola) Exam - Exam Exam: See Below - Vital Signs Vital Signs: Last Vital Signs Temp 36.3 C 05/27/20 14:17 Pulse 73 05/27/20 15:49 Resp 14 05/27/20 15:49 BP 124/86 05/27/20 15:49 Pulse Ox 98 05/27/20 15:49 Weight: 79.379 kg - Exam General: Alert, Oriented HEENT: Conjunctiva Clear, Mucosa Moist & [place], Posterior Pharynx Clear Neck: Supple, Trachea Midline Lungs: Clear to Auscultation, Normal Respiratory Effort Cardiovascular: Regular Rate, Regular Rhythm GI/Abdominal Exam: Soft, Non-Tender, No Distention, No Mass Back Exam: Normal Inspection, Full Range of Motion Extremities: Normal Inspection, Normal Range of Motion Skin Alteration Location (Drawings Not To Scale): 1 - Open wound at the 11-12 oclock position on the areolar border. Necrotic tissue at base. erythema around this spot. Neuro Extensive - Mental Status: Alert, Oriented x3, Normal Mood/Affect Psychiatric: Alert, Normal Affect Physical Exam Comments:: Firm tender enlarged left breast. No specific fluctuance other than under the open area above left nipple. - Patient Data Lab Results Last 24 hrs: Laboratory Results - last 24 hr 05/27/20 05/27/20 Range/Units 13:53 13:53 WBC 7.99 (4.0-11.0) K/uL RBC 5.50 (4.30-5.90) M/uL Hgb 14.4 (12.0-16.0) g/dL Hct 44.5 (36.0-46.0) % MCV 80.9 (80.0-98.0) fL MCH 26.2 L (27.0-32.0) pg MCHC 32.4 (31.0-37.0) g/dL RDW Std Deviation 41.7 (28.0-62.0) fl RDW Coeff of Alexys 14 (11.0-15.0) % Plt Count 337 (150-400) K/uL MPV 9.60 (7.40-12.00) fL Neut % (Auto) 69.7 (48.0-80.0) % Lymph % (Auto) 23.8 (16.0-40.0) % [place] % (Auto) 6.0 (0.0-15.0) % Eos % (Auto) 0.4 (0.0-7.0) % Baso % (Auto) 0.1 (0.0-1.5) % Neut # (Auto) 5.6 (1.4-5.7) K/uL Lymph # (Auto) 1.9 (0.6-2.4) K/uL [place] # (Auto) 0.5 (0.0-0.8) K/uL Eos # (Auto) 0.0 (0.0-0.7) K/uL Baso # (Auto) 0.0 (0.0-0.1) K/uL Nucleated RBC % 0.0 /100WBC Nucleated RBCs # 0 K/uL Sodium 140 (136-145) mmol/L Potassium 3.9 (3.5-5.1) mmol/L Chloride 104 (98-107) mmol/L Carbon Dioxide 25.9 (21.0-32.0) mmol/L BUN 7 (7.0-18.0) mg/dL Creatinine 0.5 L (0.6-1.0) mg/dL Est Cr Clr Drug Dosing 119.25 mL/min Estimated GFR (MDRD) > 60.0 ml/min Glucose 92 (74-106) mg/dL Calcium 9.2 (8.5-10.1) mg/dL C-Reactive Protein 1.70 H (0.00-0.90) mg/dL Result Diagrams: 05/27/20 13:53 05/27/20 13:53 Sepsis Event Note - Evaluation Sepsis Screening Result: No Definite Risk - Focused Exam Vital Signs: Vital Signs Temp Pulse Resp BP Pulse Ox 05/27/20 15:49 73 14 124/86 98 05/27/20 15:19 69 16 126/83 98 05/27/20 14:17 36.3 C 71 14 122/88 97 05/27/20 12:30 36.1 C 76 18 123/94 H 97 Consult PN Assessment/Plan Procedures: Procedures SAUL DNA DIR PROBE (08/21/16) COMPLETE CBC AUTOMATED (01/30/20) CULTURE SCREEN ONLY (04/11/20) CYTOPATH C/V AUTO FLUID REDO (09/20/19) BIOPHYS PROFIL W/O NST (04/18/20) NON-STRESS TEST (04/18/20) WEST VAG DNA DIR PROBE (08/21/16) GLUCOSE TEST (01/30/20) SMEAR WET [place] SALINE/INK (03/16/16) SYPHILIS TEST NON-TREP QUAL (01/30/20) TRICHOMONAS VAGIN DIR PROBE (08/21/16) URINALYSIS AUTO W/O SCOPE (04/09/16) URINE CULTURE/COLONY COUNT (03/14/20) (1) Breast abscess SNOMED Code(s): 37805272 Code(s): N61.1 - ABSCESS OF THE BREAST AND NIPPLE Current Visit: Yes Problem List Initiated/Reviewed/Updated: Yes Plan: The patient's WBC was normal. Her US showed multiple islands of fluid throughout the breast with no clear fluid collection. There was a large area of involvement however. I discussed this with our radiologist and we decided to get a CT scan of the chest to better evaluate the breast. This showed a lobulated/loculated fluid collection extending from the area of necrosis on the left breast skin. There are no beds for COVID positive patients. She does not appear septic, has stable VS and I have time in the morning to perform her surgery. The patient and I discussed the pathophysiology of breast mastitis and subsequent abscesses. The patient needs to undergo a debridement of the necrotic breast tissue and possible incision and drainage in the OR given how tender she is. Without an adequate debridement this will not improve. I think the clindamycin is working, but she needs this procedure to completely resolve this. I explained the procedure, expected perioperative course and risks including infection, bleeding, scarring and damage to surrounding structures. We discussed the need for dressing changes afterwards and that there is a possibility that she needs to stop in order for her wounds to close. She verbalized understanding and wishes to proceed. Will discharge her home tonight. She can continue her clindamycin and was instructed to be NPO at midnight. I visited with anesthesia. Will perform her surgery tomorrow am at 630. I instructed her to avoid breast feeding tonight and after surgery for 24 hours.
== END 2020-05-27 18:35 | disposition home or self-care (01) ==
LOC: MW.ED 12:20
DX: O91.12 Abscess of breast associated with the puerperium (principal)
CPT/HCPCS: 36415; 71260; 76642; 80048; 85025; 86140; 87040; 99284; Q9967; 99282

== ENCOUNTER 2020-05-28 05:41 | Day surgery (SDC) | payer BC ==
[2020-05-28] MEDS ORDERED: ceFAZolin 1 GM Vial ONE ×2 (05:48→06:10)
[2020-05-28] MEDS ORDERED: Bupivacaine 0.5% 30 ML SDV ONE ×2 (05:48→06:10)
[2020-05-28] MEDS ORDERED: Lidocaine 2% 5 ML SDV ONE (06:09)
[2020-05-28] MEDS ORDERED: Midazolam 1 MG/ML 2 ML SDV ONE (06:10)
[2020-05-28] MEDS ORDERED: fentaNYL 100 MCG/2 ML SDV ONE ×2 (06:10→07:28)
[2020-05-28] MEDS ORDERED: Propofol 200 MG/20 ML SDV ONE (06:10)
[2020-05-28] MEDS ORDERED: Clindamycin Phosphate in D5W 600 MG in Premix Bag 1 BAG IV ONE ×2 (06:18)
[2020-05-28] MEDS ORDERED: Clindamycin Phosphate in D5W 50 ML ONE (06:20)
[2020-05-28] MEDS ORDERED: Lactated Ringers 1,000 ML IV SCH (06:30)
[2020-05-28] MEDS ORDERED: Atropine 0.1 MG/ML 10 ML Syringe IVPUSH PRN ×2 (06:52)
[2020-05-28] MEDS ORDERED: Naloxone 0.4 MG/ML Syringe IVPUSH PRN (06:52)
[2020-05-28] MEDS ORDERED: 50% Dextrose in Water 50 ML Syringe IVPUSH PRN (06:52)
[2020-05-28] MEDS ORDERED: fentaNYL 100 MCG/2 ML SDV IVPUSH PRN (06:52)
[2020-05-28] MEDS ORDERED: EPINEPHrine 1:10,000 1 MG/10 ML Syringe IVPUSH PRN (06:52)
[2020-05-28] MEDS ORDERED: Albuterol 0.083% 2.5 MG/3 ML Neb Soln NEB PRN (06:52)
--- NOTE | 2020-05-28 06:57 | PCM.PREANE ---
Preanesthetic Assessment - Anesthesia/Transfusion/Family Hx Anesthesia History: Prior Anesthesia Without Reaction Family History of Anesthesia Reaction: No Transfusion History: No Prior Transfusion(s) - Review of Systems General: No Symptoms Pulmonary: No Symptoms Cardiovascular: No Symptoms Gastrointestinal: No Symptoms Neurological: No Symptoms Other: Reports: None - Physical Assessment Vital Signs: Last Vital Signs Temp 97.5 F 05/28/20 06:05 Pulse 72 05/28/20 06:05 Resp 16 05/28/20 06:05 BP 116/60 05/28/20 06:05 Pulse Ox 97 05/28/20 06:05 Height: 4 ft 11 in Weight: 79.379 kg Mental Status: Alert & Oriented x3 Airway Class: Mallampati = 2 Dentition: Reports: Normal Dentition Thyro-Mental Finger Breadths: 3 Mouth Opening Finger Breadths: 2 ROM/Head Extension: Full Lungs: Normal Respiratory Effort, Decreased Breath Sounds Cardiovascular: Regular Rate, Regular Rhythm - Allergies Allergies/Adverse Reactions: Allergies Allergy/AdvReac Type Severity Reaction Status Date / Time No Known Allergies Allergy Verified 05/27/20 12:34 - Acknowledgements Anesthesia Type Planned: General Anesthesia, MAC Pt an Appropriate Candidate for the Planned Anesthesia: Yes Alternatives and Risks of Anesthesia Discussed w Pt/Guardian: Yes Pt/Guardian Understands and Agrees with Anesthesia Plan: Yes PreAnesthesia Questionnaire - Past Health History Medical/Surgical History: Denies Medical/Surgical History HEENT History: Reports: None Cardiovascular History: Reports: None Respiratory History: Reports: Other (See Below) (Positive COVID) Gastrointestinal History: Reports: None Genitourinary History: Reports: None 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 Para: 1 LMP (Approximate): Other (See Below) (May 2020 Delivered) 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 History: Reports: None Neurological History: Reports: None Psychiatric History: Reports: None Endocrine/Metabolic History: Reports: None Hematologic History: Reports: None Immunologic History: Reports: None Oncologic (Cancer) History: Reports: None Dermatologic History: Reports: None - Infectious Disease History Infectious Disease History: Reports: None, Novel Coronavirus - Past Surgical History Head Surgeries/Procedures: Reports: None HEENT Surgical History: Reports: Other (See Below) Other HEENT Surgeries/Procedures: Wearing eyeglasses - HOME MEDS Home Medications: Home Meds Acetaminophen/oxyCODONE [Percocet 325-5 MG] 1 each PO Q6HR PRN 2 Days #8 tab 05/27/20 [Rx] Clindamycin HCl 300 mg PO Q8H 05/27/20 [History] Dicloxacillin 1 tab PO QID 05/27/20 [History] - CURRENT (IN HOUSE) MEDS Current Meds: Current Medications Albuterol (Proventil Neb Soln) 2.5 mg NEB ONETIME PRN PRN Reason: Wheezing Atropine Sulfate (Atropine 0.1 Mg/Ml) 0.5 mg IVPUSH ASDIRECTED PRN PRN Reason: Hypo-perfusion Atropine Sulfate (Atropine 0.1 Mg/Ml) 1 mg IVPUSH ASDIRECTED PRN PRN Reason: Hypo-Perfusion Dextrose/Water (Dextrose 50% In Water) 50 ml IVPUSH ASDIRECTED PRN PRN Reason: Hypoglycemia Epinephrine HCl (Epinephrine 1:10,000) 1 mg IVPUSH ASDIRECTED PRN PRN Reason: ACLS Guidelines Fentanyl (Sublimaze) 50 - 100 mcg IVPUSH Q5M PRN PRN Reason: Pain Lactated Ringer's (Ringers, Lactated) 1,000 mls @ 125 mls/hr IV ASDIRECTED JAIR Naloxone HCl (Narcan) 0.1 mg IVPUSH ASDIRECTED PRN PRN Reason: Respiratory Depression Discontinued Medications Bupivacaine HCl (Marcaine 0.5%) Confirm Administered Dose 30 ml .ROUTE .STK-MED ONE Stop: 05/28/20 05:49 Bupivacaine HCl (Marcaine 0.5%) Confirm Administered Dose 30 ml .ROUTE .STK-MED ONE Stop: 05/28/20 06:11 Cefazolin Sodium (Ancef) Confirm Administered Dose 1 gm .ROUTE .STK-MED ONE Stop: 05/28/20 05:49 Cefazolin Sodium (Ancef) Confirm Administered Dose 1 gm .ROUTE .STK-MED ONE Stop: 05/28/20 06:11 Fentanyl (Sublimaze) Confirm Administered Dose 100 mcg .ROUTE .STK-MED ONE Stop: 05/28/20 06:11 Clindamycin Phosphate 600 mg/ (Premix) 50 mls @ 100 mls/hr IV ONETIME ONE Stop: 05/28/20 06:47 Clindamycin Phosphate (Cleocin In D5w) Confirm Administered Dose 50 mls @ as directed .ROUTE .STK-MED ONE Stop: 05/28/20 06:21 Lidocaine (Xylocaine-Mpf 2%) Confirm Administered Dose 5 ml .ROUTE .STK-MED ONE Stop: 05/28/20 06:10 Midazolam HCl (Versed 1 Mg/Ml) Confirm Administered Dose 2 mg .ROUTE .STK-MED ONE Stop: 05/28/20 06:11 Propofol (Diprivan 20 Ml) Confirm Administered Dose 400 mg .ROUTE .STK-MED ONE Stop: 05/28/20 06:11
--- NOTE | 2020-05-28 07:23 | PCM.OPNOTE ---
- General Post-Op/Procedure Note Date of Surgery/Procedure: 05/28/20 Operative Procedure(s): Incision drainage and debridement of left breast abscess. Findings: 8 x 4 x 8 cm large multiloculated left breast abscess. Debridement of 2cm x 2cm x 2mm piece of necrotic breast skin overlying abscess Pre Op Diagnosis: Breast abscess Post-Op Diagnosis: same Anesthesia Technique: Local, MAC Primary Surgeon: Verenice Sorto Fluid Replacement, Intraop: 900 EBL in mLs: 50 Condition: Good
[2020-05-28] MEDS ORDERED: Acetaminophen/oxyCODONE 325-5 MG Tab PO PRN (07:27)
--- NOTE | 2020-05-28 07:40 | PCM.POSTAN ---
POST ANESTHESIA ASSESSMENT - MENTAL STATUS Mental Status: Alert, Oriented - VITAL SIGNS Vital Signs: Last Vital Signs Temp 97.5 F 05/28/20 06:05 Pulse 72 05/28/20 06:05 Resp 16 05/28/20 06:05 BP 116/60 05/28/20 06:05 Pulse Ox 97 05/28/20 06:05 - RESPIRATORY Respiratory Status: Respiratory Rate WNL, Airway Patent, O2 Saturation Stable - CARDIOVASCULAR CV Status: Pulse Rate WNL, Blood Pressure Stable - GASTROINTESTINAL GI Status: No Symptoms - PAIN Pain Score: 3 - POST OP HYDRATION Hydration Status: Adequate & Stable
[2020-05-28 07:55] VITALS: BP 127/86; PULSE 70
[2020-05-28] MEDS ORDERED: Acetaminophen/oxyCODONE 325-5 MG Tab PO ONE (07:57)
--- NOTE | 2020-05-28 08:23 | OR ---
SURGEON: VERENICE SORTO MD DATE OF PROCEDURE: 05/28/2020 PREOPERATIVE DIAGNOSIS: Left breast abscess. POSTOPERATIVE DIAGNOSIS: Left breast abscess. PROCEDURE PERFORMED: Incision, drainage, and debridement of left breast abscess. PRIMARY SURGEON: Verenice Sorto MD ANESTHESIA: MAC, local. FLUIDS: 900 mL crystalloid. ESTIMATED BLOOD LOSS: 50 mL. FINDINGS: Large multilocular 8 x 4 x 8 cm left breast abscess. 2 cm x 2 cm x 2 mm area of necrotic breast skin overlying the top of the abscess, which was debrided. No margins were associated with the case. COMPLICATIONS: None. INDICATIONS: The patient is a 29-year-old female who presented to the emergency room last night with worsening breast pain. She was diagnosed with a breast abscess and/or mastitis last week and started on antibiotics. Over the weekend, she went to the emergency room at an outside hospital and was given a different type of antibiotic. Now, she is having skin breakdown over her breast with increased pain, warmth, and drainage. Workup in the ER revealed no evidence of leukocytosis, but imaging revealed a large complicated-appearing abscess extending down from a necrotic area of skin. The patient and I discussed the need for debridement of the necrotic tissue overlying her breast as well as exploration of her abscess cavity and possible drain placement. She is lactating and I explained the need for possible cessation of at least for the surgery, but possibly also for wound healing. I went through the details of the procedure as well as the expected perioperative course, and the risk of bleeding, infection, or damage to surrounding structures. She verbalized understanding and wishes to proceed. PROCEDURE IN DETAIL: The patient was brought to the OR and left on the OR cart in supine position. A time-out was completed verifying the patient's name, age, date of , allergies, and procedure to be performed. Monitored anesthesia care was induced. After adequate sedation was achieved, we prepped and draped the left breast in usual standard fashion. The patient had a 1 cm and 5 cm opening at the 11 o'clock position on the left areolar border. I anesthetized around this area with 0.5% Marcaine plain. A 15 blade was used to make an incision along the areolar border and around the area of necrotic tissue. I then used cautery to undermine this layer of skin. I excised the openings along with an area of normal skin. This measured 2 cm x 2 cm x 2 mm in size. The breast tissue underneath was edematous and partially necrotic. There was a small tracking wound. I followed this using a hemostat and got into a much larger pocket of pus approximately 2 cm down from the skin. This was cultured and sent to pathology for Gram stain and anaerobic cultures. Using electrocautery, I then opened up the tracking wound. There was a much larger abscess cavity underneath this. She had multiple loculated pockets that extended throughout the medial aspect of the breast. Using finger dissection and a hemostat, I opened all of these up. Bleeding points were controlled with electrocautery. I then irrigated the wound copiously. The wound tracked approximately 6 cm medially in one area. A counter incision was made at the end of this and a quarter-inch Dudley drain was looped through the wound. It was secured to the skin above using a 2-0 silk suture. I irrigated the wound once again with normal saline Ancef solution. The wound was then packed with 1-inch packing strip and covered with 4 x 4 fluffs. These fluffs were then secured in place with tape. The patient tolerated the procedure well. She is COVID positive and was kept in the operating room for postoperative recovery. She remained stable and had no immediate complications. FRANCISCO NIELSEN /[id number]
== END 2020-05-28 09:15 | disposition home or self-care (01) ==
LOC: MW.SDS 05:41
PROVIDERS: ATTEND Surgery
DX: N61.1 Abscess of the breast and nipple (principal); U07.1 COVID-19; Z79.899 Other long term (current) drug therapy
CPT/HCPCS: 19120; 81025; 87070; A9270; J0690; J2001; J2250; J2704; J3010; J3490; J7120; 00400